=== PATIENT | male | born 1965 | race Caucasian/White ===

== ENCOUNTER 2017-12-24 18:28 | Emergency (ER) | END 2017-12-24 23:38 | disposition home or self-care (01) ==

== ENCOUNTER 2017-12-29 23:20 | Inpatient (IN) | END 2018-01-04 12:15 | disposition home or self-care (01) | DRG 443 ==

== ENCOUNTER 2018-01-28 18:20 | Emergency (ER) | END 2018-01-29 06:55 ==

== ENCOUNTER 2018-03-21 09:07 | Emergency (ER) | END 2018-03-21 11:55 | disposition home or self-care (01) ==

== ENCOUNTER 2018-03-25 19:13 | Emergency (ER) | END 2018-03-26 01:13 | disposition home or self-care (01) ==